=== PATIENT | male | born 1980 | race Caucasian/White ===

== ENCOUNTER 2022-07-20 14:01 | Emergency (ER) | payer MEDICARE, MEDICAID ==
[~2022-07-20 14:01] MED LIST: SEIZURE MED
[2022-07-20 14:13] VITALS: TEMP 98.8
[2022-07-20 17:44] VITALS: BP 160/88; PULSE 79
== END 2022-07-20 17:44 | disposition home or self-care (01) ==
LOC: COL.ER 14:01
DX: M25.472 Effusion, left ankle (principal); Z87.81 Personal history of (healed) traumatic fracture; Z28.310 Unvaccinated for COVID-19